=== PATIENT | male | born 1990 | race Caucasian/White ===

== ENCOUNTER → 2024-02-04 | Outpatient (CLI) | payer MEDICAID, SELFPAY ==
--- NOTE | 2024-02-04 12:30 | XR_ITS ---
Examination: MRI lumbar spine without contrast Date and time of exam: February 04, 2024 1322 hrs. Indications: Low back pain radiating to both legs pain with walking 3 months Technique: Multiple MRI axial and sagittal sections lumbar spine. Sagittal T2-weighted images, TR 3500, TE 118 T1 weighted transverse sections, TR 688 T8.5, T2-weighted sagittal sections T1 weighted sagittal sections TR 621, TE 30 T2 axial sections, TR 4, 190, TE 84. Findings: Adequate alignment lumbar vertebral bodies on the lateral view No lumbar fracture Moderate disc narrowing L1-L2, L2-L3 Disc desiccation upper 3 lumbar levels L5-S1 no disc protrusion L4-L5 2 mm central lumbar disc bulge L3-L4 2 mm central lumbar disc bulge L2-L3 6 mm central lumbar disc bulge indenting the ventral margin thecal sac L1-L2 5 mm central lumbar disc bulge indenting the ventral margin thecal sac Impression: L4-L5, L3-L4 2 mm central lumbar disc bulges L2-L3 6 mm central lumbar disc bulge indenting the ventral margin thecal sac L1-2 5 mm central lumbar disc bulge indenting the ventral margin thecal sac
== END | disposition home or self-care (01) ==
LOC: SMRI 12:03
PROVIDERS: PCP Family Medicine; Referring Provider Family Medicine; Visit Provider Family Medicine
DX: M51.360 Other intervertebral disc degeneration, lumbar region with discogenic back pain only (principal)
CPT/HCPCS: 72148